=== PATIENT | female | born 1985 | race Caucasian/White ===

== ENCOUNTER 2021-11-21 10:49 | Emergency (ER) | payer MEDICAID ==
[~2021-11-21] VITALS: Ht 157.5 cm; Wt 74.6 kg
[2021-11-21 10:56] VITALS: BP 129/94
--- NOTE | 2021-11-21 11:47 | NUR ---
36/F C/O LUQ AND RUQ PAIN X3 DAYS AND N/V X2 DAYS. PATIENT REPORTS SHE IS 14 WEEKS AND HAS BEEN UNABLE TO KEEP FOOD OR LIQUIDS DOWN. PATIENT DENIES DYSURIA, HEMATURIA, DIARRHEA OR CONSTIPATION. PATIENT IS A0.
[2021-11-21] MEDS ORDERED: ONDANSETRON 4 MG ODT PO ONE (11:55)
[2021-11-21] MEDS ORDERED: ONDA8TAB87 PO (12:27)
[2021-11-21 12:47] VITALS: BP 129/94
--- NOTE | 2021-11-21 12:47 | NUR ---
Patient discharged with v/s stable. Written and verbal after care instructions ABOUT MORNING SICKNESS AND ABDOMIAL PAIN DURING given and explained. Patient alert, oriented and verbalized understanding of instructions. Ambulatory with steady gait. All questions addressed prior to discharge. ID band removed. Patient advised to follow up with PMD. Rx of ZOFRAN given. Patient educated on indication of medication including possible reaction and side effects. Opportunity to ask questions provided and answered.
== END 2021-11-21 12:47 | disposition home or self-care (01) ==
LOC: MED 10:49
DX: O21.8 Other vomiting complicating pregnancy (principal); O26.892 Other specified pregnancy related conditions, second trimester; R10.30 Lower abdominal pain, unspecified; Z3A.16 16 weeks gestation of pregnancy
CPT/HCPCS: 81002; 81025; 99283; Q0162

== ENCOUNTER 2022-05-07 00:50 | Inpatient (IN) | payer MEDICAID ==
[~2022-05-07] VITALS: Ht 160 cm; Wt 86.2 kg
[~2022-05-07 00:50] MED LIST: ONDA8TAB87 PO
[2022-05-07 01:33] VITALS: BP 135/88
[2022-05-07] MEDS ORDERED: OXYTOCIN 20 UNITS in LACTATED RINGERS 1,000 ML IV SCH (02:50)
[2022-05-07] MEDS ORDERED: NALBUPHINE 10 MG/ML AMP IVP PRN (02:50)
[2022-05-07] MEDS ORDERED: AMPICILLIN 2,000 MG in NACL 0.9% MINI-BAG PLUS 100 ML IV SCH (02:50)
[2022-05-07] MEDS ORDERED: METHYLERGONOVINE 0.2 MG/ML AMP IM PRN ×2 (02:50→08:55)
[2022-05-07] MEDS ORDERED: ONDANSETRON 4 MG/2 ML VIAL IVP PRN (02:50)
[2022-05-07] MEDS ORDERED: CARBOPROST 250 MCG/ML AMP IM PRN (02:50)
[2022-05-07 03:14] LABS: APPEARANCE,URINE CLOUDY (CLEAR); BILIRUBIN,URINE NEGATIVE (NEGATIVE); BLOOD, URINE NEGATIVE (NEGATIVE); COLOR,URINE YELLOW (YELLOW); LEUKOCYTE ESTERASE ,URINE NEGATIVE (NEGATIVE); NITRITE, URINE NEGATIVE (NEGATIVE); PH,URINE 6.5 (5.0-9.0); UGLUCOSE NEGATIVE (NEGATIVE)
[2022-05-07 03:18] LABS: BASOPHILS % (AUTO) 0.2 % (0.0-2.0); EOSINOPHILS % (AUTO) 0.2 % (0.0-4.0); HEMATOCRIT 33.7 % (36-48); HEMOGLOBIN 11.3 g/dL (12.0-16.0); LYMPHOCYTES % (AUTO) 15.7 % (20.5-51.1); MEAN CORPUSCULAR HEMOGLOBIN 31 pg (27-31); MEAN CORPUSCULAR HGB CONC 34 g/dL (33-37); MEAN CORPUSCULAR VOLUME 93.3 fL (80-94); MONOCYTES # (AUTO) 0.7 K/uL (0.8-1.0); MONOCYTES % (AUTO) 5.4 % (1.7-9.3); NEUTROPHILS # (AUTO) 10.1 K/uL (1.8-7.7); NEUTROPHILS % (AUTO) 78.5 % (42.2-75.2); PLATELET COUNT (AUTO) 254 K/uL (140-450); RED BLOOD CELL COUNT(AUTO) 3.62 MIL/uL (4.20-5.40); RED CELL DISTRIBUTION WIDTH 13.3 % (11.6-13.7); WHITE BLOOD COUNT (AUTO) 12.9 K/uL (4.8-10.8)
[2022-05-07] MEDS: LACTATED RINGERS 1,000 ML IV SCH ×2 (03:18→05:40)
[2022-05-07] MEDS ORDERED: NALBUPHINE 10 MG/ML AMP ONE (03:20)
[2022-05-07] MEDS ORDERED: ONDANSETRON 4 MG/2 ML VIAL ONE (03:20)
[2022-05-07 03:32] LABS: PROTHROMBIN TIME 9.7 secs (10.8-13.4)
[2022-05-07 03:34] LABS: ALBUMIN 2.5 g/dL (3.4-5.0); ANION GAP 14.9 (8-16); CREATININE 0.5 mg/dL (0.6-1.3); POTASSIUM 3.9 mmol/L (3.5-5.1); TOTAL BILIRUBIN 0.4 mg/dL (0.0-1.0)
[2022-05-07] MEDS ORDERED: AMPICILLIN 2,000 MG VIAL ONE (03:51)
[2022-05-07] MEDS ORDERED: AMPICILLIN 1,000 MG in NACL 0.9% MINI-BAG PLUS 50 ML IV SCH (04:00)
[2022-05-07] MEDS ORDERED: ROPIVACAINE 0.2%/NS PREMIX 200 ML EPI ONE (04:44)
[2022-05-07] MEDS ORDERED: ROPIVACAINE 0.2%/NS PREMIX 100 ML EPI SCH (05:05)
[2022-05-07] MEDS ORDERED: PNV1TABL5 PO (06:56)
[2022-05-07] MEDS ORDERED: OXYTOCIN 20 UNITS/LR PREMIX 1,000 ML IV ONE (07:27)
[2022-05-07] MEDS ORDERED: AMPICILLIN 1,000 MG VIAL ONE (08:05)
[2022-05-07 08:13] LABS: BARBITURATE, URINE NEGATIVE ng/ml (NEG <=200); BENZODIAZEPINE, URINE NEGATIVE ng/mL (NEG <=200); CANNABINOID, URINE NEGATIVE ng/mL (NEG <=50); COCAINE, URINE NEGATIVE ng/mL (NEG <=300); OPIATE, URINE NEGATIVE ng/mL (NEG <=2000); PHENCYCLIDINE SCREEN,URINE NEGATIVE ng/mL (NEG <=25)
[2022-05-07] MEDS ORDERED: OXYTOCIN 10 UNITS/ML VIAL IM PRN (08:55)
[2022-05-07] MEDS ORDERED: BENZOCAINE/MENTHOL 20%-0.5% 60 GM CAN TP PRN (08:55)
[2022-05-07] MEDS ORDERED: METHYLERGONOVINE 0.2 MG TAB PO PRN (08:55)
[2022-05-07] MEDS ORDERED: TEMAZEPAM 15 MG CAP PO PRN (08:55)
[2022-05-07] MEDS ORDERED: oxyCODONE/APAP 5/325 MG 1 TAB TAB PO PRN ×2 (08:55)
--- NOTE | 2022-05-07 10:14 | NUR ---
PATIENT HAS BEEN SCREENED AND CATEGORIZED LOW NUTRITION RISK. PATIENT WILL BE SEEN WITHIN 7 DAYS OF ADMISSION. 05/14/22 REVIEWED BY MECHELLE GARCIA RD
[2022-05-07] MEDS: IBUPROFEN 800 MG TAB PO PRN ×2 (11:57→19:58)
[2022-05-07] MEDS ORDERED: DOCUSATE SOD/SENNA 50/8.6 MG 1 TAB PO SCH (21:00)
[2022-05-08] MEDS ORDERED: FLU VACCINE QS2022-23 0.5 ML SYR IMVAC ONE (04:15)
[2022-05-08 05:36] LABS: HEMATOCRIT 32.7 % (36-48)
[2022-05-08] MEDS: IBUPROFEN 800 MG TAB PO PRN (09:01)
== END 2022-05-08 14:25 | disposition home or self-care (01) | DRG 560 ==
LOC: MLD 00:50 → OBSVTOIN 02:45 → MFCC 11:35
PROVIDERS: ADMIT Obstetrics & Gynecology; ATTEND Obstetrics & Gynecology
PROC: 10D07Z6 Extraction of Products of Conception, Vacuum, Via Natural or Artificial Opening (ICD-10-PCS; principal; 2022-05-07)
PROC: 0HQ9XZZ Repair Perineum Skin, External Approach (ICD-10-PCS; 2022-05-07)
PROC: 3E0R3BZ Introduction of Anesthetic Agent into Spinal Canal, Percutaneous Approach (ICD-10-PCS; 2022-05-07)
PROC: 00HU33Z Insertion of Infusion Device into Spinal Canal, Percutaneous Approach (ICD-10-PCS; 2022-05-07)
PROC: 3E0234Z Introduction of Serum, Toxoid and Vaccine into Muscle, Percutaneous Approach (ICD-10-PCS; 2022-05-08)
DX: O70.0 First degree perineal laceration during delivery (principal); Z37.0 Single live birth; Z20.822 Contact with and (suspected) exposure to COVID-19; Z3A.38 38 weeks gestation of pregnancy
CPT/HCPCS: 36415; 80053; 80305; 81003; 85018; 85025; 85610; 85730; 86592; 86886; 86900; 86901; 87340; 90715; J0290; J2300; J2405; J2590; J2795; J7120

== ENCOUNTER 2022-08-15 09:30 | Day surgery (SDC) | payer MEDICAID ==
[~2022-08-15] VITALS: Ht 157.5 cm; Wt 79.4 kg
[2022-08-15] MEDS ORDERED: BUPIVACAINE-MPF 0.25% 30 ML VIAL INJ ONE (11:23)
[2022-08-15] MEDS ORDERED: fentaNYL citrate 0.05 MG/ML VIAL ONE (11:35)
[2022-08-15] MEDS ORDERED: ceFAZolin 2,000 MG VIAL ONE (11:47)
[2022-08-15] MEDS ORDERED: PROPOFOL 200 MG/20 ML VIAL IV ONE (12:08)
[2022-08-15] MEDS ORDERED: KETOROLAC 30 MG/ML VIAL ONE (12:08)
[2022-08-15] MEDS ORDERED: ONDANSETRON 4 MG/2 ML VIAL ONE (12:08)
[2022-08-15] MEDS ORDERED: LABETALOL 20 MG/4 ML VIAL IVP PRN (12:38)
[2022-08-15] MEDS ORDERED: METOCLOPRAMIDE 10 MG/2 ML INJ VIAL IVP PRN (12:38)
[2022-08-15] MEDS ORDERED: hydrALAZINE 20 MG/ML VIAL IVP PRN (12:38)
[2022-08-15] MEDS ORDERED: diphenhydrAMINE 50 MG/ML VIAL IVP PRN (12:40)
[2022-08-15] MEDS ORDERED: HYDROmorphone 1 MG/ML AMP IVP PRN (12:40)
[2022-08-15] MEDS ORDERED: LACTATED RINGERS 1,000 ML IV SCH (12:40)
== END 2022-08-15 14:15 | disposition home or self-care (01) ==
LOC: MDS 09:30 → MMU 09:31 → MDS 14:15
PROVIDERS: ATTEND Obstetrics & Gynecology
DX: Z30.2 Encounter for sterilization (principal); I10 Essential (primary) hypertension; J45.909 Unspecified asthma, uncomplicated; Z20.822 Contact with and (suspected) exposure to COVID-19; Z91.012 Allergy to eggs; Z91.013 Allergy to seafood; Z91.011 Allergy to milk products; Z79.899 Other long term (current) drug therapy
CPT/HCPCS: 58670; 87426; J1885; J2405; J2704; J3010; J3490

== ENCOUNTER 2023-01-22 06:00 | Emergency (ER) | payer MEDICAID ==
[~2023-01-22] VITALS: Ht 157.5 cm; Wt 79.4 kg
[2023-01-22 06:10] VITALS: BP 145/92; PULSE 72; RESP 20; TEMP 98.1; O2SAT 98
--- NOTE | 2023-01-22 06:25 | NUR ---
PT TAKEN TO BED 2
--- NOTE | 2023-01-22 06:34 | NUR ---
Forrest lennon in [facility] - 01/22/[address] at [address] Jordan examining patient.
--- NOTE | 2023-01-22 06:34 | NUR ---
MD HUTCHINSON AT BEDSIDE EXAMINING PT.
[2023-01-22] MEDS ORDERED: NACL 0.9% 1,000 ML IV ONE (06:40)
[2023-01-22] MEDS ORDERED: KETOROLAC 30 MG/ML VIAL IVP ONE (06:40)
--- NOTE | 2023-01-22 06:56 | NUR ---
urine walked to lab
[2023-01-22] MEDS ORDERED: ONDANSETRON 4 MG/2 ML VIAL IVP ONE (07:05)
[2023-01-22 07:19] LABS: APPEARANCE,URINE CLEAR (CLEAR); BILIRUBIN,URINE NEGATIVE (NEGATIVE); BLOOD, URINE 3+ (NEGATIVE); COLOR,URINE YELLOW (YELLOW); LEUKOCYTE ESTERASE ,URINE NEGATIVE (NEGATIVE); NITRITE, URINE NEGATIVE (NEGATIVE); UGLUCOSE NEGATIVE (NEGATIVE)
--- NOTE | 2023-01-22 07:19 | NUR ---
PT WHEELED TO RADIOLOGY FOR CT SCAN
[2023-01-22 07:35] LABS: RBC,URINE 11-20 (MOD) /HPF (0-5)
[2023-01-22 07:58] LABS: BASOPHILS % (AUTO) 0.4 % (0.0-2.0); EOSINOPHILS % (AUTO) 0.3 % (0.0-4.0); HEMATOCRIT 37.4 % (36-48); HEMOGLOBIN 12.6 g/dL (12.0-16.0); LYMPHOCYTES # (AUTO) 1.6 K/uL (2.5-16.5); LYMPHOCYTES % (AUTO) 13.8 % (20.5-51.1); MEAN CORPUSCULAR HEMOGLOBIN 30 pg (27-31); MEAN CORPUSCULAR HGB CONC 34 g/dL (33-37); MEAN CORPUSCULAR VOLUME 89.9 fL (80-94); MONOCYTES # (AUTO) 0.7 K/uL (0.8-1.0); MONOCYTES % (AUTO) 5.8 % (1.7-9.3); NEUTROPHILS % (AUTO) 79.7 % (42.2-75.2); PLATELET COUNT (AUTO) 257 K/uL (140-450); RED BLOOD CELL COUNT(AUTO) 4.16 MIL/uL (4.20-5.40); RED CELL DISTRIBUTION WIDTH 12.5 % (11.6-13.7); WHITE BLOOD COUNT (AUTO) 11.2 K/uL (4.8-10.8)
[2023-01-22 08:11] LABS: ALBUMIN 3.7 g/dL (3.4-5.0); ANION GAP 11.6 (8-16); CARBON DIOXIDE 27.2 mmol/L (21-32); CREATININE 0.7 mg/dL (0.6-1.3); POTASSIUM 3.8 mmol/L (3.5-5.1); TOTAL BILIRUBIN 0.8 mg/dL (0.0-1.0)
[2023-01-22] MEDS ORDERED: NAPR-1704 PO (08:48)
[2023-01-22] MEDS ORDERED: ACET-8905 PO (08:48)
[2023-01-22 09:06] VITALS: PULSE 96; RESP 24; O2SAT 98
--- NOTE | 2023-01-22 09:15 | NUR ---
IV removed, catheter intact and site benign. Applied folded 4x4 gauze and tape to stop bleeding.
--- NOTE | 2023-01-22 09:30 | NUR ---
Patient discharged with v/s stable. Written and verbal after care instructions given and explained. Patient alert, oriented and verbalized understanding of instructions. [g ED.DCMODE] with [g ED.D/CMODE]. All questions addressed prior to discharge. ID band removed. Patient advised to follow up with PMD. Rx of HYDROCODONE, NAPROXEN given. Patient educated on indication of medication including possible reaction and side effects. Opportunity to ask questions provided and answered.
[2023-01-22 09:44] VITALS: BP 124/63; PULSE 75; RESP 18; TEMP 97.8; O2SAT 98
== END 2023-01-22 09:30 | disposition home or self-care (01) ==
LOC: MED 06:00
DX: N23 Unspecified renal colic (principal); Z79.899 Other long term (current) drug therapy
CPT/HCPCS: 36415; 74176; 80053; 81001; 81025; 82150; 83690; 84703; 85025; 96361; 96374; 96375; 99285; J1885; J2405; J7030

== ENCOUNTER 2023-07-23 14:45 | Emergency (ER) | payer MEDICAID ==
[~2023-07-23] VITALS: Ht 157.5 cm; Wt 73.5 kg
[~2023-07-23 14:45] MED LIST changes: +ACET-8905 PO; +NAPR-1704 PO; -ONDA8TAB87 PO
[2023-07-23 15:26] VITALS: BP 129/93; PULSE 146; RESP 16; TEMP 102.8; O2SAT 100
[2023-07-23] MEDS: ONDANSETRON 4 MG ODT PO ONE (15:45)
[2023-07-23] MEDS ORDERED: CRUSHER, PILL MC ONE (15:47)
[2023-07-23] MEDS: ACETAMINOPHEN EXTRA STRENGTH 500 MG TAB PO ONE (15:49)
[2023-07-23] MEDS: IBUPROFEN 600 MG TAB PO ONE (15:49)
[2023-07-23 16:32] LABS: FLU A ANTIGEN negative (NEGATIVE); FLU B ANTIGEN NEGATIVE (NEGATIVE)
[2023-07-23] MEDS ORDERED: IBUP-2213 PO (16:34)
[2023-07-23] MEDS ORDERED: BENZ-256 MM (16:34)
[2023-07-23] MEDS ORDERED: NIRM1TAB9 PO (16:34)
[2023-07-23] MEDS ORDERED: BENZ100C6 PO (16:35)
[2023-07-23] MEDS ORDERED: ONDA-188 SL (16:35)
[2023-07-23 16:59] VITALS: BP 120/80; PULSE 88; RESP 16; TEMP 98.9; O2SAT 100
== END 2023-07-23 16:59 | disposition home or self-care (01) ==
LOC: MED 14:45
DX: U07.1 COVID-19 (principal); Z79.899 Other long term (current) drug therapy; Z79.1 Long term (current) use of non-steroidal anti-inflammatories (NSAID)
CPT/HCPCS: 87081; 87426; 87804; 99284; Q0162

== ENCOUNTER 2024-02-29 19:33 | Emergency (ER) | payer MEDICAID, OTHER ==
[~2024-02-29] VITALS: Ht 157.5 cm; Wt 78.0 kg
[~2024-02-29 19:33] MED LIST changes: +BENZ-256 MM; +BENZ100C6 PO; +IBUP-2213 PO; +NIRM1TAB9 PO; +ONDA-188 SL
[2024-02-29 19:37] VITALS: BP 138/94; PULSE 91; RESP 18; TEMP 97.2; O2SAT 100
[2024-02-29] MEDS: LIDOCAINE MPF 1% 10 MG/ML VIAL INJ ONE (20:12)
[2024-02-29 20:23] LABS: BASOPHILS % (AUTO) 0.5 % (0.0-2.0); EOSINOPHILS # (AUTO) 0.1 K/uL (0-0.4); EOSINOPHILS % (AUTO) 1.2 % (0.0-4.0); HEMATOCRIT 35.6 % (36-48); HEMOGLOBIN 11.9 g/dL (12.0-16.0); LYMPHOCYTES # (AUTO) 3.3 K/uL (2.5-16.5); LYMPHOCYTES % (AUTO) 39.6 % (20.5-51.1); MEAN CORPUSCULAR HEMOGLOBIN 31 pg (27-31); MEAN CORPUSCULAR HGB CONC 34 g/dL (33-37); MEAN CORPUSCULAR VOLUME 91.6 fL (80-94); MONOCYTES # (AUTO) 0.6 K/uL (0.8-1.0); MONOCYTES % (AUTO) 7.3 % (1.7-9.3); NEUTROPHILS # (AUTO) 4.3 K/uL (1.8-7.7); NEUTROPHILS % (AUTO) 51.4 % (42.2-75.2); PLATELET COUNT (AUTO) 272 K/uL (140-450); RED BLOOD CELL COUNT(AUTO) 3.88 MIL/uL (4.20-5.40); RED CELL DISTRIBUTION WIDTH 12.6 % (11.6-13.7); WHITE BLOOD COUNT (AUTO) 8.3 K/uL (4.8-10.8)
[2024-02-29 20:33] LABS: ANION GAP 9.3 (8-16); CALCIUM 8.6 mg/dL (8.5-10.1); CARBON DIOXIDE 29.3 mmol/L (21-32); CREATININE 0.7 mg/dL (0.6-1.3); POTASSIUM 3.6 mmol/L (3.5-5.1)
[2024-02-29 21:01] VITALS: BP 144/74; PULSE 86; RESP 18; TEMP 97.2; O2SAT 99
[2024-02-29] MEDS ORDERED: IBUP-1842 PO (21:02)
== END 2024-02-29 21:01 | disposition home or self-care (01) ==
LOC: MED 19:33
DX: S81.812A Laceration without foreign body, left lower leg, initial encounter (principal); R07.89 Other chest pain; R11.0 Nausea; R51.9 Headache, unspecified; I10 Essential (primary) hypertension; Z79.1 Long term (current) use of non-steroidal anti-inflammatories (NSAID); Z79.899 Other long term (current) drug therapy; W25.XXXA Contact with sharp glass, initial encounter; Y93.89 Activity, other specified; Y92.89 Other specified places as the place of occurrence of the external cause; Y99.8 Other external cause status
CPT/HCPCS: 12001; 36415; 71045; 80048; 84484; 85025; 93005; 99285; J2001; Q0092

== ENCOUNTER 2024-03-07 17:53 | Emergency (ER) | payer OTHER ==
[~2024-03-07] VITALS: Ht 165.1 cm; Wt 68.0 kg
[~2024-03-07 17:53] MED LIST changes: +IBUP-1842 PO
[2024-03-07 17:57] VITALS: BP 130/95; PULSE 90; RESP 16; TEMP 97.9; O2SAT 99
[2024-03-07] MEDS ORDERED: BACI-418 TP (18:18)
[2024-03-07 18:20] VITALS: O2SAT 99
== END 2024-03-07 18:28 | disposition home or self-care (01) ==
LOC: MED 17:53
DX: S81.812D Laceration without foreign body, left lower leg, subsequent encounter (principal); Z48.02 Encounter for removal of sutures; I10 Essential (primary) hypertension; Z79.899 Other long term (current) drug therapy; X58.XXXD Exposure to other specified factors, subsequent encounter
CPT/HCPCS: 99282